=== PATIENT | female | born 1980 | race Hispanic/Latino ===

== ENCOUNTER → 2018-06-09 | Outpatient (CLI) | payer MEDICARE ==
[2018-06-09 11:44] LABS: BASOPHILS % (AUTO) 0.3 % (0.0-5.0); EOSINOPHILS % (AUTO) 4.5 % (0.0-8.0); HEMATOCRIT 34.3 % (36-48); LYMPHOCYTES % (AUTO) 20.1 % (21.0-51.0); MEAN CORPUSCULAR HEMOGLOBIN 24.7 pg (27.0-33.0); MEAN CORPUSCULAR HGB CONC 32.7 g/dL (32.0-36.0); MEAN CORPUSCULAR VOLUME 75.5 fL (79-99); MONOCYTES % (AUTO) 9.7 % (3.0-13.0); NEUTROPHILS % (AUTO) 65.4 % (40.0-77.0); PLATELET COUNT (AUTO) 557 K/uL (130-400); RED BLOOD CELL COUNT(AUTO) 4.55 MIL/uL (4.00-5.50); RED CELL DISTRIBUTION WIDTH 17.6 % (11.0-15.5); WHITE BLOOD COUNT (AUTO) 9.3 K/uL (4.8-10.8)
[2018-06-09 12:00] LABS: ALBUMIN 2.9 g/dL (3.5-5.0); BILIRUBIN,TOTAL 0.3 mg/dL (0.2-1.0); CREATININE 0.9 mg/dL (0.5-1.5); POTASSIUM 3.9 mmol/L (3.5-5.1); TOTAL PROTEIN, SERUM 8.2 g/dL (6.0-8.3)
[2018-06-09 12:05] LABS: INR 0.96 (0.85-1.15); PARTIAL THROMBOPLASTIN TIME 27.2 SEC (26.3-35.5); PROTHROMBIN TIME 10.1 SEC (9.6-11.6)
== END | disposition home or self-care (01) ==
LOC: LAB 11:08
PROVIDERS: ATTEND Internal Medicine
DX: K74.3 Primary biliary cirrhosis (principal); R94.5 Abnormal results of liver function studies
CPT/HCPCS: 36415; 80053; 82784; 85025; 85610; 85730; 86038; 86215; 86235; 86255

== ENCOUNTER 2018-06-14 07:57 | Day surgery (SDC) | payer MEDICARE ==
[2018-06-14] VITALS (11 sets, daily range): BP systolic 121–146; BP diastolic 76–91
[2018-06-14] MEDS ORDERED: FENTANYL CITRATE PF 50 MCG/1 ML 2ML VIAL ONE (08:40)
[2018-06-14] MEDS ORDERED: LIDOCAINE HCL 1% 20 ML VIAL ONE (08:41)
[2018-06-14] MEDS ORDERED: MIDAZOLAM HCL 1 MG/ML 2ML VIAL ONE (08:41)
[2018-06-14] MEDS ORDERED: LIDOCAINE 1%-EPI 1:100,000 20 ML VIAL IJ ONE (08:41)
[2018-06-14] MEDS ORDERED: HYDROMORPHONE HCL 0.5 MG/0.5 ML ML IVP PRN (11:15)
[2018-06-14] MEDS ORDERED: HYDROMORPHONE 1 MG/1 ML AMP IVP PRN (11:45)
== END 2018-06-14 15:00 | disposition home or self-care (01) ==
LOC: DAH 07:57 → EDSTATUS 08:00 → DAH 15:00
PROVIDERS: ATTEND Internal Medicine
DX: K75.9 Inflammatory liver disease, unspecified (principal); D64.9 Anemia, unspecified; M19.90 Unspecified osteoarthritis, unspecified site; Z68.41 Body mass index [BMI] 40.0-44.9, adult; Z98.51 Tubal ligation status; M05.9 Rheumatoid arthritis with rheumatoid factor, unspecified
CPT/HCPCS: 47000; 76942; 88307; 88313; A4215 ×2; J1170; J2250; J3010; J3490; 99152